=== PATIENT | female | born 2000 | race Caucasian/White ===

== ENCOUNTER → 2024-03-09 08:51 | Outpatient (CLI) | payer OTHER, SELFPAY ==
[2024-03-10 13:11] LABS: Candida species Negative (Negative); Gardnerella vaginalis Positive (Negative); Trichomoas vaginalis Negative (Negative)
== END ==
PROVIDERS: Visit Provider Student in an Organized Health Care Education/Training Program
DX: N89.8 Other specified noninflammatory disorders of vagina (principal)
CPT/HCPCS: 87480; 87510; 87660